=== PATIENT | female | born 1950 | race African-American/Black ===

== ENCOUNTER 2020-09-29 22:11 | Inpatient (IN) | payer MEDICAID, MEDICARE ==
[~2020-09-29] VITALS: Ht 154.9 cm; Wt 74.8 kg
[2020-09-29] MEDS ORDERED: HALOPERIDOL LACTATE 5MG/ML VIAL IM ONE (23:00)
[2020-09-29 23:42] LABS: INR 0.9; PROTHROMBIN TIME 10.2 sec (9.6-11.0)
[2020-09-29] MEDS ORDERED: IOHEXOL-350 100 ML BOTTLE ONE (23:48)
[2020-09-29 23:49] LABS: BASOPHILS % 0.6 % (0.0-2.0); EOSINOPHILS % 3.5 % (0.0-5.0); HEMATOCRIT. 36.2 % (36.0-48.0); HEMOGLOBIN. 12.1 g/dL (12.0-16.0); LYMPHOCYTES % 19.8 % (20.0-50.0); MEAN CORPUSCULAR HEMOGLOBIN 30.7 pg (28.0-32.0); MEAN PLATELET VOLUME 8.7 fl (7.4-10.4); MONOCYTES % 8.9 % (2.0-8.0); NEUTROPHILS % 67.2 % (40.0-76.0); PLATELET 204 x1000/uL (130-400); RED BLOOD CELL COUNT 3.93 mill/uL (4.2-5.4); RED CELL DISTRIBUTION WIDTH 14.8 % (11.6-14.6)
[2020-09-29 23:51] LABS: CLARITY URINE CLEAR (CLEAR); COLOR URINE YELLOW (YELLOW); KETONES URINE TRACE (NEGATIVE); LEUKOCYTE ESTERASE URINE 1+ (NEGATIVE); NITRITE URINE POSITIVE (NEGATIVE); OCCULT BLOOD URINE NEGATIVE (NEGATIVE); PROTEIN URINE TRACE (NEGATIVE); SPECIFIC GRAVITY URINE 1.023 (1.005-1.030); UROBILINOGEN URINE 0.2 E.U./dL (0.2-1.0)
[2020-09-30] MEDS ORDERED: DEXT 5%/0.9% NACL 500 ML IV ONE
[2020-09-30 00:01] LABS: CHLORIDE 110 mEq/L (98-107)
[2020-09-30 00:06] LABS: ETHANOL BLOOD < 10 mg/dL
[2020-09-30 00:08] LABS: LDL CHOLESTEROL 123 mg/dL (5-100)
[2020-09-30 00:10] LABS: *AMPHETAMINES SCREEN URINE NEGATIVE (NEGATIVE); *BARBITURATES SCREEN URINE NEGATIVE (NEGATIVE); *BENZODIAZEPINES SCREEN URINE NEGATIVE (NEGATIVE); *COCAINE SCREEN URINE NEGATIVE (NEGATIVE)
[2020-09-30 00:11] LABS: CANNABINOID URINE SCREEN PRESUMTIVE POSITIVE (NEGATIVE); METHADONE URINE SCREEN NEGATIVE (NEGATIVE); OPIATES URINE SCREEN NEGATIVE (NEGATIVE); PHENCYCLIDINE URINE SCREEN NEGATIVE (NEGATIVE)
[2020-09-30] MEDS ORDERED: CEFTRIAXONE 1 G PREMIX 50 ML IV ONE (00:45)
[2020-09-30] MEDS ORDERED: LORAZEPAM 2MG/ML CPJ IV ONE (01:00)
[2020-09-30] MEDS ORDERED: KETOROLAC 15MG/ML VIAL IV PRN (06:30)
[2020-09-30] MEDS ORDERED: DOCUSATE SODIUM 100MG CAPSULE PO PRN (06:30)
[2020-09-30] MEDS ORDERED: GUAIFENESIN 200MG/10ML SUGAR FREE UDC PO PRN (06:30)
[2020-09-30] MEDS ORDERED: ACETAMINOPHEN 325MG TABLET PO PRN ×2 (06:30)
[2020-09-30] MEDS ORDERED: CLONIDINE 0.1MG TABLET PO PRN (06:30)
[2020-09-30] MEDS ORDERED: MAGNESIUM/ALUMINUM HYDROXIDE/SIMETHICONE 30ML UDC PO PRN (06:30)
[2020-09-30] MEDS ORDERED: ZOLPIDEM TARTRATE 5MG TABLET PO PRN (06:30)
[2020-09-30] MEDS ORDERED: NITROGLYCERIN 0.4MG TABLET SL SL PRN (06:30)
[2020-09-30] MEDS ORDERED: IPRATROPIUM/ALBUTEROL 0.5-3(2.5)MG/3ML NEB NEB PRN (06:30)
[2020-09-30] MEDS ORDERED: ONDANSETRON HCL 4MG/2ML INJ IV PRN (06:30)
[2020-09-30] MEDS ORDERED: LEVOFLOXACIN 500MG PREMIX 100 ML IV SCH (08:00)
[2020-09-30] MEDS ORDERED: ENOXAPARIN 40MG/0.4ML SYR SUBCUT SCH (08:00)
[2020-09-30] MEDS ORDERED: ZINC SULFATE 220 MG ( 50 ) CAPSULE PO SCH (09:00)
[2020-09-30] MEDS ORDERED: ASCORBIC ACID 500 MG TABLET PO SCH (09:00)
[2020-09-30] MEDS ORDERED: CLOPIDOGREL 75MG TABLET PO SCH (09:00)
[2020-09-30] MEDS ORDERED: FAMOTIDINE 20MG TABLET PO SCH (09:00)
[2020-09-30] MEDS ORDERED: CHOLECALCIFEROL (D3) 1000 UNIT TABLET PO SCH (09:00)
[2020-09-30 09:16] LABS: T4 FREE 1.04 ng/dL (0.76-1.46)
[2020-09-30 09:39] LABS: FOLIC ACID (FOLATE) SERUM 17.4 ng/mL (>5.38)
[2020-09-30 10:00] VITALS: BP 134/76
[2020-09-30 10:20] VITALS: BP 134/76
[2020-09-30 12:00] VITALS: BP 128/72
[2020-09-30 14:00] VITALS: BP 126/92
[2020-09-30 15:51] LABS: CREATINE KINASE 62 IU/L (26-192)
[2020-09-30 15:52] LABS: CREATINE KINASE MB FRACTION < 1.0 ng/mL (0.5-3.6)
[2020-09-30 16:00] VITALS: BP 108/70
[2020-10-01] MEDS ORDERED: LEVOFLOXACIN 250MG PREMIX 50 ML IV SCH (09:00)
== END 2020-09-30 18:53 | disposition left against medical advice (07) | DRG 689 ==
LOC: ER 22:11 → EDBEDREQTM 22:49 → EDBEDREQ 22:49 → 5EST 09-30 03:47 → EDBEDREQ 09-30 03:50 → EDBEDREQTM 09-30 03:50 → ENRESERV 09-30 07:03 → SUPCPDRO 09-30 09:08
PROVIDERS: ADMIT Internal Medicine; ATTEND Internal Medicine
DX: N39.0 Urinary tract infection, site not specified (principal); G92 Toxic encephalopathy; R47.01 Aphasia; G51.0 Bell's palsy; G89.4 Chronic pain syndrome; I10 Essential (primary) hypertension; Z88.0 Allergy status to penicillin; Z53.29 Procedure and treatment not carried out because of patient's decision for other reasons; Z86.73 Personal history of transient ischemic attack (TIA), and cerebral infarction without residual deficits
CPT/HCPCS: 36415; 70496; 70498; 70551; 71045; 80053; 80061; 80305; 80320; 81003; 82550; 82553; 82607; 82746; 82962; 83036; 83540; 83550; 83605; 83615; 83721; 84145; 84439; 84443; 84484; 85025; 85379; 86850; 86900; 93005; 93306; 93970; 99285; J0696; J1630; J1650; J1956; J2060; J7042; Q9967; G0480